=== PATIENT | male | born 1995 | race African-American/Black ===

== ENCOUNTER 2025-07-30 01:05 | Emergency (ER) | payer OTHER ==
[~2025-07-30] VITALS: Ht 182.9 cm; Wt 95.3 kg
[2025-07-30 01:14] VITALS: BP 119/73
[2025-07-30 02:07] LABS: PLATELET COUNT (AUTO) 150 K/uL (152-348); RED BLOOD CELL COUNT(AUTO) 4.98 MIL/uL (4.06-5.63); RED CELL DISTRIBUTION WIDTH 12.9 % (12.1-16.2); WHITE BLOOD COUNT (AUTO) 5.9 K/uL (3.6-10.2)
[2025-07-30 02:17] LABS: CREATININE 1.2 mg/dL (0.6-1.3); SODIUM SERUM 139.0 mmol/L (136-145); UREA NITROGEN, BLOOD 17.0 mg/dL (7-18)
[2025-07-30] MEDS ORDERED: ONDANSETRON 4 MG/2 ML VIAL ONE (02:18)
[2025-07-30] MEDS ORDERED: HYDROMORPHONE 1 MG/1 ML DISP.SYRIN ONE (02:19)
[2025-07-30 02:23] LABS: ASPARTATE AMINOTRANSFERASE 26.0 U/L (15-37); TOTAL PROTEIN, SERUM 7.4 g/dL (6.4-8.2)
[2025-07-30] MEDS: HYDROMORPHONE 1 MG/1 ML DISP.SYRIN IV ONE (02:26)
[2025-07-30] MEDS: ONDANSETRON 4 MG/2 ML VIAL IV ONE (02:26)
[2025-07-30] MEDS: IV NORMAL SALINE 1000 ML BAG IV ONE (02:26)
[2025-07-30] MEDS ORDERED: IOHEXOL 300MG/ML 100 ML INFUS..BTL ONE (03:00)
[2025-07-30] MEDS ORDERED: SWABABLE VALVE TRANSFER SET EA MC ONE (03:00)
[2025-07-30] MEDS ORDERED: IV NORMAL SALINE 250 ML IV ONE (03:00)
[2025-07-30] MEDS ORDERED: HYDR-4209 PO (05:30)
[2025-07-30] MEDS ORDERED: ONDA4TAB11 PO (05:30)
[2025-07-30 05:46] VITALS: BP 119/73; O2SAT 98
== END 2025-07-30 05:47 | disposition home or self-care (01) ==
LOC: ER 01:51
DX: R10.9 Unspecified abdominal pain (principal); R05.9 Cough, unspecified; Z20.822 Contact with and (suspected) exposure to COVID-19
CPT/HCPCS: 99285; 74177; 96374; 96361; 96375; 87426; 87804 ×2; 80076; 80048; 83690; 85025; 36415; J2405; Q9967; J1171; J7040; A4606; A4663